=== PATIENT | male | born 1995 | race Two or more races ===

== ENCOUNTER → 2016-02-18 | Outpatient (CLI) | payer BC ==
--- NOTE | 2016-02-18 14:19 | US ---
EXAMINATION TYPE: US scrotum with doppler. Grayscale and color Doppler Duplex imaging performed of t he scrotum. DATE OF EXAM: 02/18/2016 2:07 PM COMPARISON: NONE CLINICAL HISTORY: history of mono last month, 5 days of left teste pain and sometimes swelling left t mickie. EXAM MEASUREMENTS: TESTICLES: Right Testicle: 2.7x4.2 x 3.3 cm Left Testicle: 3.1 x4.4 x 2.0 cm EPIDIDYMIS HEAD: Right Epididymis: 1.2 x 0.8 x 1.5 cm Left Epididymis: 3.1 x 5.8 x 1.5 cm Doppler performed to assess for testicular vascularity; good bilateral color flow and waveforms are s een. There is no evidence of testicular torsion. Presence of hydroceles: kimberly Presence of varicoceles: no TECHNOLOGIST IMPRESSION: kimberly teste no masses seen, left enlarged and hypervascular epididymis IMPRESSION: Findings consistent with left-sided epididymitis and small left-sided hydrocele.
== END | disposition home or self-care (01) ==
LOC: RADUSWWP 13:36
PROVIDERS: ATTEND Family Medicine
DX: N50.812 Left testicular pain (principal); N50.89 Other specified disorders of the male genital organs; Z86.19 Personal history of other infectious and parasitic diseases
CPT/HCPCS: 76870; 93975